=== PATIENT | female | born 1975 | race American Indian/Alaskan Native ===

== ENCOUNTER 2017-11-13 20:37 | Emergency (ER) | payer SELFPAY ==
[2017-11-13 20:46] VITALS: BP 153/95
[2017-11-13] MEDS ORDERED: MOTRIN PO ONE (21:50)
--- NOTE | 2017-11-13 21:55 | Emergency Department Report ---
- General Chief Complaint: Headache Stated Complaint: HEADACHE Time Seen by Provider: 11/13/17 21:44 Source: patient Mode of arrival: Ambulatory Limitations: No Limitations - History of Present Illness Initial Comments: 42-year-old -[place] female comes to the ED for complaint of headache and nasal congestion. Patient reports that she's had no fever no chills but does admit to [place] nose sneezing and headache. Patient reports that her headache is located in the frontal and also behind the bridge of her nose. Patient reports that she's been taken TheraFlu which is not helping much. Patient has past medical history of none currently takes no medications on a daily basis and has no known drug allergies. It was noted the patient's elevated blood pressure in triage and patient reports that she had a physical 3 weeks ago and they mention it to her that her blood pressure was elevated. MD Complaint: cough, rhinorrhea, nasal congestion, sinus pain -: week(s) (2) Severity: moderate Severity scale (0 -10): 8 Quality: dull, aching Consistency: constant Improves With: nothing Worsens With: nothing Associated Symptoms: headache, nasal congestion, other (rhinorrhea) - Related Data Previous Rx's Medication Instructions Recorded Last Taken Type Cephalexin [Keflex] 500 mg PO BID #20 capsule 11/13/17 Unknown Rx Fexofenadine HCl [Vanessa Allergy] 180 mg PO QDAY #30 tablet 11/13/17 Unknown Rx Fluticasone [Flonase] 1 spray NS QDAY #1 bottle 11/13/17 Unknown Rx Ibuprofen 600 mg PO Q8H PRN #30 tablet 11/13/17 Unknown Rx Lisinopril/Hydrochlorothiazide 1 tab PO QDAY #30 tablet 11/13/17 Unknown Rx [Zestoretic 10-12.5 mg] Allergies Allergy/AdvReac Type Severity Reaction Status Date / Time No Known Allergies Allergy Unverified 11/13/17 20:46 ED Review of Systems ROS: Stated complaint: HEADACHE Other details as noted in HPI ENT: congestion (nasal congestion, postnasal drip, rhinorrhea) Respiratory: cough Cardiovascular: denies: chest pain, palpitations Endocrine: no symptoms reported Gastrointestinal: denies: abdominal pain, nausea, diarrhea Genitourinary: denies: urgency, dysuria, discharge Musculoskeletal: denies: back pain, joint swelling, arthralgia Skin: denies: rash, lesions Neurological: denies: headache, weakness, paresthesias Psychiatric: denies: anxiety, depression Hematological/Lymphatic: denies: easy bleeding, easy bruising ED Past Medical Hx - Past Medical History Previous Medical History?: No - Surgical History Past Surgical History?: No - Social History Smoking Status: Current Every Day Smoker Substance Use Type: None - Medications Home Medications: Home Medications Medication Instructions Recorded Confirmed Last Taken Type Cephalexin [Keflex] 500 mg PO BID #20 capsule 11/13/17 Unknown Rx Fexofenadine HCl [Vanessa Allergy] 180 mg PO QDAY #30 tablet 11/13/17 Unknown Rx Fluticasone [Flonase] 1 spray NS QDAY #1 bottle 11/13/17 Unknown Rx Ibuprofen 600 mg PO Q8H PRN #30 tablet 11/13/17 Unknown Rx Lisinopril/Hydrochlorothiazide 1 tab PO QDAY #30 tablet 11/13/17 Unknown Rx [Zestoretic 10-12.5 mg] ED Physical Exam - General Limitations: No Limitations General appearance: alert, in no apparent distress - Head Head exam: Present: atraumatic, normocephalic - Eye Eye exam: Present: normal appearance - ENT ENT exam: Present: mucous membranes moist, other (maxillary and frontal sinus tenderness) - Neck Neck exam: Present: normal inspection - Respiratory Respiratory exam: Present: normal lung sounds bilaterally. Absent: respiratory distress - Cardiovascular Cardiovascular Exam: Present: regular rate, normal rhythm. Absent: systolic murmur, diastolic murmur, rubs, gallop - GI/Abdominal GI/Abdominal exam: Present: soft, normal bowel sounds - Extremities Exam Extremities exam: Present: normal inspection - Back Exam Back exam: Present: normal inspection - Neurological Exam Neurological exam: Present: alert, oriented X3 - Psychiatric Psychiatric exam: Present: normal affect, normal mood - Skin Skin exam: Present: warm, dry, intact, normal color. Absent: rash ED Course Vital Signs 11/13/17 20:43 Temperature 98.2 F Pulse Rate 111 H Respiratory 17 Rate Blood Pressure 153/95 O2 Sat by Pulse 99 Oximetry ED Medical Decision Making - Medical Decision Making Patient has been evaluated by this provider fast track. I discussed with patient that this appears to be allergic rhinitis with sinusitis. I also discussed the patient at her blood pressure is elevated I discussed start her on lisinopril 20 mg for elevated blood pressure for her to follow-up with [facility]. Also discussed the patient that I will put her on antibiotics for sinusitis Flonase for nasal congestion and Vanessa as an antihistamine. Patient verbalized understanding. Critical care attestation.: If time is entered above; I have spent that time in minutes in the direct care of this critically ill patient, excluding procedure time. ED Disposition Clinical Impression: Elevated blood pressure reading Sinusitis, acute Qualifiers: Sinusitis location: maxillary Recurrence: not specified as recurrent Qualified Code(s): J01.00 - Acute maxillary sinusitis, unspecified Allergic rhinitis Qualifiers: Allergic rhinitis trigger: unspecified Allergic rhinitis seasonality: unspecified seasonality Qualified Code(s): J30.9 - Allergic rhinitis, unspecified Disposition: - TO HOME OR SELFCARE Is pt being admited?: No Does the pt Need Aspirin: No Condition: Stable Instructions: Sinusitis (ED), Hypertension (ED) Additional Instructions: Take medication as prescribed. Follow-up with her [facility] to be evaluated for elevated blood pressure. Prescriptions: Cephalexin [Keflex] 500 mg PO BID #20 capsule Fexofenadine HCl [Vanessa Allergy] 180 mg PO QDAY #30 tablet Fluticasone [Flonase] 1 spray NS QDAY #1 bottle Ibuprofen 600 mg PO Q8H PRN #30 tablet PRN Reason: Pain Lisinopril/Hydrochlorothiazide [Zestoretic 10-12.5 mg] 1 tab PO QDAY #30 tablet Referrals: [facility] [Provider Group] - 3-5 Days Forms: Work/School Release Form(ED)
== END 2017-11-13 22:34 | disposition home or self-care (01) ==
LOC: ED 20:37
DX: J01.00 Acute maxillary sinusitis, unspecified (principal); J01.10 Acute frontal sinusitis, unspecified; R03.0 Elevated blood-pressure reading, without diagnosis of hypertension; J30.9 Allergic rhinitis, unspecified; F17.200 Nicotine dependence, unspecified, uncomplicated
CPT/HCPCS: 99282